=== PATIENT | male | born 1955 | race Caucasian/White ===

== ENCOUNTER 2020-11-26 14:19 | Outpatient (CLI) | payer MEDICARE, OTHER | END 2020-11-26 14:20 | disposition critical access hospital (66) | LOC: EMS 14:19 | PROVIDERS: ATTEND Surgery | DX: S49.92XA Unspecified injury of left shoulder and upper arm, initial encounter (principal); W18.31XA Fall on same level due to stepping on an object, initial encounter; Y93.89 Activity, other specified; Y92.832 Beach as the place of occurrence of the external cause | CPT/HCPCS: A0425; A0429 ==

== ENCOUNTER 2020-11-26 15:21 | Emergency (ER) | payer MEDICARE, OTHER ==
--- NOTE | 2020-11-26 15:30 | ED Physician Documentation ---
PD HPI UPPER EXT INJURY - Stated complaint Stated Complaint: L ARM INJURY - History obtained from History obtained from: Patient, EMS - History of Present Illness Location: Left (65-year-old [place] and fell directly on his left arm with moderate to severe pain there. No other injuries. Did not hit his head.) Review of Systems Constitutional: reports: Reviewed and negative Eyes: reports: Reviewed and negative Ears: reports: Reviewed and negative Nose: reports: Reviewed and negative Throat: reports: Reviewed and negative Cardiac: reports: Reviewed and negative Respiratory: reports: Reviewed and negative PD PAST MEDICAL HISTORY - Present Medications Home Medications: Ambulatory Orders Medication Instructions Recorded Confirmed HYDROcod/ACETAM 5/325 [[place] 5/325] 1 - 2 tab PO Q6H PRN #20 tablet 11/26/20 - Allergies Allergies/Adverse Reactions: Allergies Allergy/AdvReac Type Severity Reaction Status Date / Time No Known Drug Allergies Allergy Verified 11/26/20 15:28 PD ED PE NORMAL - Vitals Vital signs reviewed: Yes - General General: Alert and oriented X 3, No acute distress - HEENT HEENT: PERRL, EOMI - Neck Neck: Supple, no meningeal sign, No bony TTP - Extremities Extremities: Other (No obvious deformity of the left upper extremity but he is unable to range it at all. He is tender over the upper humerus. Normal neurovascular function in the hand and over diuretics) - Neuro Neuro: Alert and oriented X 3, Normal speech Results - Vitals Vitals: Vital Signs - 24 hr 11/26/20 15:28 Temperature 37.1 C Heart Rate 57 L Respiratory 16 Rate Blood Pressure 162/88 H O2 Saturation 100 Oxygen O2 Source Room air - Rads (name of study) L HUmerus Radiology: EMP read contemporaneously (Moderately displaced left proximal humeral shaft fracture with fracture lines also seen extending up to the humeral head.) Procedures - Splint (location) LUE Splint applied by: Physician, Tech Type of splint: Fiberglass, Long arm (co-apt) Other: Patient tolerated well, No complications, Neurovascular intact, Sling provided PD MEDICAL DECISION MAKING - ED course ED course: 65-year-old gentleman with nondominant isolated left arm injury. Neurovascularly intact but probably has some rotational deformity to the humerus. Case was discussed by phone with the on-call orthopedist, Dr. Marie who recommends a coapt/reverse sugar tong fiberglass splint for immobilization and follow-up in the office. Departure - Departure Disposition: 01 Home, Self Care Clinical Impression: Fracture of shaft of left humerus Qualifiers: Encounter type: initial encounter Fracture type: closed Fracture morphology: spiral Fracture alignment: displaced Qualified Code(s): S42.342A - Displaced spiral fracture of shaft of humerus, left arm, initial encounter for closed fracture Condition: Good Record reviewed to determine appropriate education?: Yes Instructions: ED Fx Upper Ext, ED Cast Care Fiberglass Follow-Up: Noe Marie MD [Provider Admit Priv/Credential] - Within 1 week Prescriptions: HYDROcod/ACETAM 5/325 [[place] 5/325] 1 - 2 tab PO Q6H PRN #20 tablet PRN Reason: Pain Comments: Call the orthopedic surgeon listed on this form to arrange for an appointment next week. Keep the splint on and dry. If pain is mild you can take Tylenol or ibuprofen as needed per package instructions. Do not drink or drive while taking narcotic pain medication. Note that many narcotic pain relievers also contain Tylenol/acetaminophen. Please ensure that your total dose of acetaminophen from all sources does not exceed 3 g (3000 mg) per day. You may get constipated while on this medication. Take a stool softener such as Colace twice a day while you are on it. Also add an [id number]-[id number] laxative such as senna or MiraLAX on any day that you do not have a bowel movement. If you received a narcotic pain medication or sedative while in the emergency department, do not drive for the next 24 hours.
[2020-11-26 15:35] VITALS: BP 162/88
[2020-11-26] MEDS ORDERED: HYDROcod/ACETAM 5/325 MG TABLET PO STA (15:50)
--- NOTE | 2020-11-26 16:09 | XRAY Report ---
PROCEDURE: Humerus LT INDICATIONS: arm inj TECHNIQUE: 2 views of the humerus were acquired. COMPARISON: None available FINDINGS: Bones: There is a moderately displaced, slightly comminuted fracture of the left proximal humeral sha ft, with fracture lines also seen extending up into the left humeral head. No shoulder dislocation can be seen. The visualized ribs appear intact. No suspicious lytic or blast ic lesions are seen. Soft tissues: No suspicious soft tissue calcifications. The visualized lung demonstrates a normal a ppearance. IMPRESSION: Moderately displaced left proximal humeral shaft fracture, with fracture lines also seen extending up into the humeral head. Reviewed by: Justen Medel MD on 11/26/2020 3:08 PM [facility] Approved by: Justen Medel MD on 11/26/2020 3:08 PM [facility] Station ID: [id number]
[2020-11-26] MEDS ORDERED: HYDROcod/ACET 5/325 Prepack 4 PO STA (16:44)
== END 2020-11-26 17:15 | disposition home or self-care (01) ==
LOC: ED 15:21
DX: S42.342A Displaced spiral fracture of shaft of humerus, left arm, initial encounter for closed fracture (principal); W01.0XXA Fall on same level from slipping, tripping and stumbling without subsequent striking against object, initial encounter; Y93.01 Activity, walking, marching and hiking; Y92.832 Beach as the place of occurrence of the external cause
CPT/HCPCS: 29105; 73060; 99283; A9270

== ENCOUNTER 2020-12-11 23:22 | Emergency (ER) | payer MEDICARE, OTHER ==
[2020-12-11 23:30] VITALS: BP 134/84
--- NOTE | 2020-12-11 23:36 | ED Physician Documentation ---
PD HPI UPPER EXT INJURY - Stated complaint Stated Complaint: LT ARM WOUNDS - Chief complaint Chief Complaint: Wound PD PAST MEDICAL HISTORY - Past Medical History Cardiovascular: None Respiratory: None Neuro: None Endocrine/Autoimmune: None GI: None : Other HEENT: None Psych: None Musculoskeletal: None Derm: None - Past Surgical History Past Surgical History: Yes Ortho: Other - Present Medications Home Medications: Ambulatory Orders Medication Instructions Recorded Confirmed HYDROcod/ACETAM 5/325 [[place] 5/325] 1 - 2 tab PO Q6H PRN #20 tablet 11/26/20 - Allergies Allergies/Adverse Reactions: Allergies Allergy/AdvReac Type Severity Reaction Status Date / Time No Known Drug Allergies Allergy Verified 12/11/20 23:25 - Social History Does the pt smoke?: No Smoking Status: Never smoker Does the pt drink ETOH?: Yes Does the pt have substance abuse?: No - Immunizations Immunizations are current?: Yes Results - Vitals Vitals: Vital Signs - 24 hr 12/11/20 23:25 Temperature 36.6 C Heart Rate 58 L Respiratory 16 Rate Blood Pressure 134/84 H O2 Saturation 100 Oxygen O2 Source Room air
[2020-12-11] MEDS ORDERED: BACITRACIN ZINC OINT 1 PACKET TOP STA (23:46)
[2020-12-11] MEDS ORDERED: cephALEXin 250 MG CAPSULE PO STA (23:57)
--- NOTE | 2020-12-12 09:32 | ED Physician Documentation ---
History of Present Illness - Stated complaint Stated Complaint: LT ARM WOUNDS - Chief complaint Chief Complaint: Wound - History obtained from History obtained from: Patient - History of Present Illness Timing: Today Pain level now: 3 - Additonal information Additional information: T+R from this ED 11/26 for left humeral fracture. He was seen twice in outpatient setting by orthopedic surgeon, being managed nonoperatively with Caban splint, which was adjusted (tightened) 3 days ago. Patient says earlier today he had increasing pain and sensation of swelling and thus removed the splint and noted a thick discharge from the anterior area of the injury. He says he had been keeping the splint in place until today. Denies fever. Review of Systems Constitutional: denies: Fever, Chills, Sweats Skin: reports: Rash Musculoskeletal: reports: Extremity pain, Extremity swelling PD PAST MEDICAL HISTORY - Past Medical History Past Medical History: Yes Cardiovascular: None Respiratory: None Neuro: None Endocrine/Autoimmune: None GI: None : None HEENT: None Psych: None Musculoskeletal: None Derm: None Other Past Medical History: Hematochromatosis - Past Surgical History Past Surgical History: Yes Ortho: Other - Present Medications Home Medications: Ambulatory Orders Medication Instructions Recorded Confirmed HYDROcod/ACETAM 5/325 [[place] 5/325] 1 - 2 tab PO Q6H PRN #20 tablet 11/26/20 cephALEXin [Keflex] 500 mg PO Q6H #28 capsule 12/12/20 - Allergies Allergies/Adverse Reactions: Allergies Allergy/AdvReac Type Severity Reaction Status Date / Time No Known Drug Allergies Allergy Verified 12/11/20 23:25 - Social History Does the pt smoke?: No Smoking Status: Never smoker Does the pt drink ETOH?: Yes Does the pt have substance abuse?: No - Immunizations Immunizations are current?: Yes - POLST Patient has POLST: No PD ED PE NORMAL - Vitals Vital signs reviewed: Yes - General General: Alert and oriented X 3, No acute distress, Well developed/nourished - Neuro Neuro: No motor deficit, No sensory deficit PD ED PE EXPANDED - Extremities Extremities: Swelling, Bruising, Other (diagrammed areas 1 and 2 have abraded skin with punctate areas of scant fresh blood; both areas are erythematous but not hot to touch and there is no fluctuance nor purulent discharge seen) LADONNA UE/Hands Visual: 1 - bruising, abrasion 2 - bruising, abrasion Results - Vitals Vitals: Vital Signs - 24 hr 12/11/20 12/12/20 23:25 00:28 Temperature 36.6 C 36.6 C Heart Rate 58 L 62 Respiratory 16 14 Rate Blood Pressure 134/84 H O2 Saturation 100 100 Oxygen O2 Source Room air Procedures - Splint (location) Upper extremity left Splint applied by: Tech Type of splint: Fiberglass, Sugar tong Other: Patient tolerated well, No complications, Neurovascular intact, Good alignment, Other PD MEDICAL DECISION MAKING - ED course Complexity details: reviewed old records, considered differential, d/w patient ED course: the diagrammed areas (1 and 2) of LUE have appearance s/o irritation and s uperficial skin breakdown, correlating with areas of contact with the splint. Does not appear infected although patient reports noting thick discharge when he removed the splint earlier tonight. Given dose of keflex with rx for same to cover possible early cellulitis. A sugar tong splint was applied which patient says was comfortable; I instructed him to contact his orthopedic surgeon to arrange for next available appointment for reevaluation . Departure - Departure Disposition: 01 Home, Self Care Clinical Impression: Left humeral fracture Condition: Good Instructions: ED Cast Care Fiberglass, ED Fx Upper Ext Follow-Up: Noe Marie MD [Provider Admit Priv/Credential] - Within 3 Days Prescriptions: cephALEXin [Keflex] 500 mg PO Q6H #28 capsule Discharge Date/Time: 12/12/20 00:28
== END 2020-12-12 00:28 | disposition home or self-care (01) ==
LOC: ED 23:22
DX: S42.302A Unspecified fracture of shaft of humerus, left arm, initial encounter for closed fracture (principal); X58.XXXA Exposure to other specified factors, initial encounter; L98.491 Non-pressure chronic ulcer of skin of other sites limited to breakdown of skin
CPT/HCPCS: 29105; 99282; 99283; A9270

== ENCOUNTER 2021-01-09 07:37 | Outpatient (CLI) | payer MEDICARE, OTHER ==
--- NOTE | 2021-01-09 11:40 | XRAY Report ---
PROCEDURE: Humerus LT INDICATIONS: ASEPTIC NECROSIS OF L HUMERUS TECHNIQUE: 4 views of the humerus were acquired. COMPARISON: Left humerus radiographs 12/14/2020 FINDINGS: Bones: A mildly displaced fracture of the proximal humeral diaphysis is again seen with approximately 7 mm lateral and posterior displacement of the distal fracture fragment. A lucent fracture line is a gain seen extending to the posterior aspect of the greater tuberosity. Callus formation and periostea l reaction is seen adjacent to the fracture, compatible with interval healing changes. Soft tissues: No suspicious soft tissue calcifications. IMPRESSION: Mild progressive healing changes involving the previously seen mildly displaced fracture of the proxi mal humeral diaphysis. Reviewed by: Gagan Enrique MD on 01/09/2021 11:38 AM PST Approved by: Gagan Enrique MD on 01/09/2021 11:38 AM [facility] Station ID: [id number]
== END 2021-01-09 23:59 | disposition home or self-care (01) ==
LOC: DI.N 07:37
PROVIDERS: ATTEND Orthopaedic Surgery
DX: M87.022 Idiopathic aseptic necrosis of left humerus (principal); S42.202A Unspecified fracture of upper end of left humerus, initial encounter for closed fracture

== ENCOUNTER 2023-08-29 06:59 | Day surgery (SDC) | payer MEDICARE, OTHER ==
[~2023-08-29 06:59] MED LIST: CYCLOPENTOLATE 1% OPHTH DROPS 2 ML ONE; KETOROLAC 0.45% OPHTH DROPS ONE; PHENYLEPHRINE 2.5% OPHTH 2 ML DROPS ONE; PROPARACAINE 0.5% OPHTH DROPS 15 ML ONE
[2023-08-29] MEDS ORDERED: LACTATED RINGERS 1,000 ML IV ONE (07:07)
--- NOTE | 2023-08-29 07:21 | ANESTHESIA ---
Pre-Anesthesia VS, & Labs - Diagnosis L senile combined cataract - Procedure L extraction cataract w/IOL Vital Signs: Temp Pulse Resp BP Pulse Ox O2 Flow Rate 36.1 C L 64 16 127/87 H 95 08/29/23 07:11 08/29/23 07:11 08/29/23 07:11 08/29/23 07:11 08/29/23 07:11 Height: 6 ft 4 in Weight (kg): 95 kg Body Mass Index: 25.4 BMI Classification: Overweight - NPO >8 hours - Lab Results Lab results reviewed: Yes Home Medications and Allergies Home Medications: Ambulatory Orders Finasteride [Proscar] 5 mg PO DAILY 08/29/23 Tamsulosin HCl [Flomax] 0.4 mg PO DAILY 08/29/23 Allergies/Adverse Reactions: Allergies Allergy/AdvReac Type Severity Reaction Status Date / Time No Known Drug Allergies Allergy Verified 12/11/20 23:25 Anes History & Medical History - Anesthetic History Anesthesia Complications: reports: No previous complications Family history of Anesthesia Complications: Denies Family history of Malignant Hyperthermia: Denies - Medical History Cardiovascular: reports: None Pulmonary: reports: None Gastrointestinal: reports: None Urinary: reports: None Neuro: reports: None Musculoskeletal: reports: None Endocrine/Autoimmune: reports: None Blood Disorders: reports: None Skin: reports: None Smoking Status: Never smoker Psychosocial: reports: Alcohol (social) History of Cancer?: No - Surgical History Orthopedic: reports: Other Exam General: Alert, Oriented x3, Cooperative Dental: WNL Mouth Openin Fingerbreadth Neck Mobility: Normal Mallampati classification: I Thyromental Distance: 4-6 cm Respiratory: Lungs clear, Normal breath sounds, No respiratory distress Cardiovascular: Regular rate Neurological: Normal speech Mental/Cognitive Status: Alert/Oriented X3, Normal for patient Cognitive Status: Within normal limits Plan Anesthesia Type: MAC Consent for Procedure(s) Verified and Reviewed: Yes Code Status: Attempt Resuscitation ASA classification: 1-Healthy patient Is this case an emergency?: No
[2023-08-29] MEDS ORDERED: TRIAMCIN/MOXIFLOX OPHTHALMIC 0.6 ML VIAL IO ONE ×2 (07:29→08:16)
[2023-08-29] MEDS ORDERED: BSS/LIDOCAINE/EPINEPHRINE 1 ML VIAL ONE (07:29)
[2023-08-29] MEDS ORDERED: EPINEPHrine 1 MG/ML AMP ONE (07:29)
[2023-08-29] MEDS ORDERED: BRIMONIDINE 0.2% OPHTH DROPS 5 ML ONE (07:29)
[2023-08-29] MEDS ORDERED: TIMOLOL 0.5% OPHTH DROPS ONE (07:29)
[2023-08-29] MEDS ORDERED: BRIMONIDINE 0.2% OPHTH DROPS 5 ML OPTH ONE (08:15)
[2023-08-29] MEDS ORDERED: MIDAZOLAM 2 MG/2 ML VIAL ONE (08:16)
[2023-08-29] MEDS ORDERED: BSS/LIDOCAINE/EPINEPHRINE 1 ML SYRINGE IO ONE (08:16)
[2023-08-29] MEDS ORDERED: PROPARACAINE 0.5% OPHTH DROPS 15 ML EACHEYE ONE (08:16)
[2023-08-29] MEDS ORDERED: TIMOLOL 0.5% OPHTH DROPS OPTH ONE (08:16)
[2023-08-29] MEDS ORDERED: EPINEPHrine 1 MG/ML AMP IR ONE (08:16)
[2023-08-29] MEDS ORDERED: VANCOMYCIN OPHTH (TOPICAL) 10 MG/ML SYRINGE TOP ONE (08:17)
[2023-08-29] MEDS ORDERED: LACTATED RINGERS 550 ML IV ONE (08:47)
--- NOTE | 2023-08-29 08:51 | ANESTHESIA POST OP EVALUATION ---
Anesthesia Post Eval - Post Anesthesia Eval Vitals: Last Vital Signs Temp 36.3 C L 08/29/23 08:47 Pulse 51 L 08/29/23 08:47 Resp 12 08/29/23 08:47 BP 104/66 08/29/23 08:47 Pulse Ox 99 08/29/23 08:47 O2 Flow Rate CV Function Including HR & BP: Stable Pain Control: Satisfactory Nausea & Vomiting: Negative Mental Status: Baseline Respiratory Status: Airway Patent Hydration Status: Satisfactory Anesthesia Complications: None
--- NOTE | 2023-08-29 08:59 | OPERATIVE REPORT ---
Operative Report - Other Other Information/Narrative: Date of Surgery: 08/29/23 Preop Dx: Visually significant cataract left eye. This was the first cataract surgery. Postop Dx: Same Procedure: Phacoemulsification with posterior chamber intraocular lens implant left eye Surgeon: Dr. Oz Quarles Anesthesia: Monitored anesthesia care Complications: None Operative Indications: This is a 67-year-old M with progressive vision loss in the left eye due to 3+ nuclear sclerotic cataract, anterior central opacities, and central irregularities. Best corrected visual acuity was 20/25 with glare to 20/150 vision in the left eye. Indications for surgery were: - Difficulty seeing words on a computer screen - Difficulty reading - Difficulty driving in low light or at night - Difficulty driving at night because of headlights from other vehicles The patient was consented at length concerning the risks and benefits of cataract surgery after which the patient expressed a desire to proceed with surgery. Operative Procedure: The patient was taken into OR#3 and placed under monitored anesthesia care. A surgical time-out was conducted confirming correct patient, correct procedure, and correct surgical site. The patient was given topical anesthesia and then prepped and draped in the usual sterile fashion. The eye was entered at the 6 and 3 oclock positions. Intracameral Shugarcaine was injected into the anterior chamber followed by a dispersive viscoelastic. A continuous-tear curvilinear capsulorhexis was performed. The nucleus was hydrodissected and phacoemulsified. The cortex was evacuated using automated infusion and aspiration. A cohesive viscoelastic was injected into the capsular bag and a 21.5 diopter intraocular lens was inserted into the bag. Infusion and aspiration were used to evacuate the viscoelastic materials from the eye. The wounds were hydrated and the eye inflated to physiologic pressure using balanced salt solution. However, during hydration the iris prolapsed through the phaco wound and had to be reposited using a cyclodialysis spatula. Two 10.0 Nylon sutures were then placed across the phaco wound and the eye was re-inflated with balanced salt solution. Approximately 0.25ml of a mixture of triamcinolone and moxifloxacin was injected trans-sclerally into the vitreous in the inferotemporal quadrant using a 30 gauge cannula. An additional 0.25ml of a mixture of triamcinolone and moxifloxacin was injected subconjunctivally in the superior quadrant for infection and inflammation prophylaxis. Wound integrity was checked with Weck-Elizabeth sponges. The patient was taken from the operating room in good condition and given post-op instructions.
[2023-08-29 09:02] VITALS: O2SAT 98
[2023-08-29 09:12] VITALS: BP 109/74
--- NOTE | 2023-08-29 09:47 | OPERATIVE REPORT ---
Operative Report - Other Other Information/Narrative: Date of Surgery: 08/29/23 Preop Dx: Visually significant cataract left eye. This was the first cataract surgery. Postop Dx: Same Procedure: Phacoemulsification with posterior chamber toric intraocular lens implant left eye Surgeon: Dr. Oz Quarles Anesthesia: Monitored anesthesia care Complications: IOL trailing haptic avulsion during implantation with subsequent explantation and replacement. Operative Indications: This is a 67-year-old M with progressive vision loss in the left eye due to 3-4+ nuclear sclerotic cataract. Best corrected visual acuity was 20/30 with glare to 20/200 vision in the left eye. Indications for surgery were: - Overall decrease in vision - Difficulty seeing words on a computer screen - Difficulty reading - Difficulty seeing street signs - Difficulty driving in low light or at night - Difficulty driving at night because of headlights from other vehicles - Difficulty with glare or bright lights in any situation The patient was consented at length concerning the risks and benefits of cataract surgery after which the patient expressed a desire to proceed with surgery. Operative Procedure: The patients cornea was marked in the pre-surgical area to indicate the axis for the toric intraocular lens. The patient was taken into OR#3 and placed under monitored anesthesia care. A surgical time-out was conducted confirming correct patient, correct procedure, and correct surgical site. The patient was given topical anesthesia and then prepped and draped in the usual sterile fashion. The eye was entered at the 6 and 3 oclock positions. Intracameral Shugarcaine was injected into the anterior chamber followed by a dispersive viscoelastic. A continuous-tear curvilinear capsulorhexis was performed. The nucleus was hydrodissected and phacoemulsified. The cortex was evacuated using automated infusion and aspiration. A cohesive viscoelastic was injected into the capsular bag and a 21.0 diopter toric intraocular lens was inserted through the phaco wound but the trailing haptic was jammed between the injector barrel and the injector plunger. Neither advancing the plunger or retracting the plunger seemed to dislodge the haptic. During retraction the IOL haptic parted from the IOL leaving the IOL in the anterior chamber with only one haptic. The IOL in the anterior chamber was cut into three pieces using microsurgical graspers and microsurgical scissors and the pieces removed. A 21.0 diopter toric intraocular lens was inserted into the bag and rotated to axis 010. Infusion and aspiration were used to evacuate the viscoelastic materials from the eye and the IOL was verified to remain on axis. The wounds were hydrated and the eye inflated to physiologic pressure using balanced salt solution. Approximately 0.25ml of a mixture of triamcinolone and moxifloxacin was injected trans-sclerally into the vitreous in the inferotempor al quadrant using a 30 gauge cannula. An additional 0.25ml of a mixture of triamcinolone and moxifloxacin was injected subconjunctivally in the superior quadrant for infection and inflammation prophylaxis. Wound integrity was checked with Weck-Elizabeth sponges and the IOL axis was once again verified to be on the correct axis. The patient was taken from the operating room in good condition, he and his informed of the complication, and given post-op instructions.
== END 2023-08-29 07:00 | disposition home or self-care (01) ==
LOC: SDS 06:59
PROVIDERS: ATTEND Ophthalmology
DX: H25.812 Combined forms of age-related cataract, left eye (principal)
CPT/HCPCS: 66984; A9270; J3490; J7120

== ENCOUNTER 2023-10-31 08:18 | Day surgery (SDC) | payer MEDICARE, OTHER ==
[~2023-10-31 08:18] MED LIST changes: -CYCLOPENTOLATE 1% OPHTH DROPS 2 ML ONE
[2023-10-31] MEDS ORDERED: CYCLOPENTOLATE 1% OPHTH DROPS 2 ML RIGHTEYE ONE (08:38)
[2023-10-31] MEDS ORDERED: MIDAZOLAM 2 MG/2 ML VIAL ONE (09:29)
[2023-10-31] MEDS ORDERED: TIMOLOL 0.5% OPHTH DROPS ONE (09:50)
[2023-10-31] MEDS ORDERED: EPINEPHrine 1 MG/ML AMP ONE (09:50)
[2023-10-31] MEDS ORDERED: TRIAMCIN/MOXIFLOX OPHTHALMIC 0.6 ML VIAL IO ONE ×2 (09:50→10:16)
[2023-10-31] MEDS ORDERED: BRIMONIDINE 0.2% OPHTH DROPS 5 ML ONE (09:50)
[2023-10-31] MEDS ORDERED: BSS/LIDOCAINE/EPINEPHRINE 1 ML VIAL ONE (09:51)
--- NOTE | 2023-10-31 09:59 | ANESTHESIA ---
Pre-Anesthesia VS, & Labs - Diagnosis Right senile combined cataract - Procedure right eye cataract extraction with IOL implant Vital Signs: Temp Pulse Resp BP Pulse Ox O2 Flow Rate 36.5 C 51 L 16 104/68 100 10/31/23 08:30 10/31/23 08:30 10/31/23 08:30 10/31/23 08:30 10/31/23 08:30 Height: 6 ft 4 in Weight (kg): 96 kg Body Mass Index: 25.7 BMI Classification: Overweight - NPO >8 hours Home Medications and Allergies Finasteride [Proscar] 5 mg PO DAILY 08/29/23 Tamsulosin HCl [Flomax] 0.4 mg PO DAILY 08/29/23 Allergies/Adverse Reactions: Allergies Allergy/AdvReac Type Severity Reaction Status Date / Time No Known Drug Allergies Allergy Verified 10/30/23 12:12 Anes History & Medical History - Anesthetic History Anesthesia Complications: reports: No previous complications - Medical History Cardiovascular: reports: None Pulmonary: reports: None Gastrointestinal: reports: None Urinary: reports: Benign prostate hypertrophy Neuro: reports: None Musculoskeletal: reports: None Endocrine/Autoimmune: reports: None Blood Disorders: reports: None Skin: reports: None Smoking Status: Never smoker Psychosocial: reports: No issues indicated History of Cancer?: No - Surgical History Orthopedic: reports: Other Exam General: Alert, Oriented x3, Cooperative, No acute distress Dental: WNL Mouth Openin Fingerbreadth Neck Mobility: Normal Mallampati classification: II Thyromental Distance: 4-6 cm Mental/Cognitive Status: Alert/Oriented X3, Normal for patient Plan Anesthesia Type: MAC Consent for Procedure(s) Verified and Reviewed: Yes Code Status: Attempt Resuscitation ASA classification: 2-Mild systemic disease Is this case an emergency?: No
[2023-10-31] MEDS ORDERED: TIMOLOL 0.5% OPHTH DROPS OPTH ONE (10:15)
[2023-10-31] MEDS ORDERED: BRIMONIDINE 0.2% OPHTH DROPS 5 ML OPTH ONE (10:15)
[2023-10-31] MEDS ORDERED: BSS/LIDOCAINE/EPINEPHRINE 1 ML SYRINGE IO ONE (10:15)
[2023-10-31] MEDS ORDERED: EPINEPHrine 1 MG/ML AMP IR ONE (10:15)
[2023-10-31] MEDS ORDERED: PROPARACAINE 0.5% OPHTH DROPS 15 ML RIGHTEYE ONE (10:16)
[2023-10-31] MEDS ORDERED: VANCOMYCIN OPHTH (TOPICAL) 10 MG/ML SYRINGE TOP ONE (10:16)
[2023-10-31] MEDS ORDERED: LACTATED RINGERS 1,000 ML IV ONE (10:28)
--- NOTE | 2023-10-31 10:38 | OPERATIVE REPORT ---
Operative Report - Other Other Information/Narrative: Date of Surgery: 10/31/23 Preop Dx: Visually significant cataract right eye. Cataract surgery was performed in the left eye on . Postop Dx: Same Procedure: Phacoemulsification with posterior chamber intraocular lens implant right eye Surgeon: Dr. Oz Quarles Anesthesia: Monitored anesthesia care Complications: None Operative Indications: This is a 67-year-old M with progressive vision loss in the right eye due to 2-3+ nuclear sclerotic and trace cortical cataract. Best corrected visual acuity was 20/20 with glare to 20/150 vision in the right eye. Indications for surgery were: - Overall decrease in vision - Difficulty seeing words on a computer screen - Difficulty reading - Difficulty seeing words, closed captions, or game scores on TV - Difficulty seeing street signs - Difficulty driving in low light or at night - Difficulty driving at night because of headlights from other vehicles - Difficulty with glare or bright lights in any situation The patient was consented at length concerning the risks and benefits of cataract surgery after which the patient expressed a desire to proceed with surgery. Operative Procedure: The patient was taken into OR#3 and placed under monitored anesthesia care. A surgical time-out was conducted confirming correct patient, correct procedure, and correct surgical site. The patient was given topical anesthesia and then prepped and draped in the usual sterile fashion. The eye was entered at the 6 and 3 oclock positions. Intracameral Shugarcaine was injected into the anterior chamber followed by a dispersive viscoelastic. The iris prolapsed through the phaco wound and had to be reposited using a cy clodialysis spatula. A continuous-tear curvilinear capsulorhexis was performed. The nucleus was hydrodissected and phacoemulsified. The cortex was evacuated using automated infusion and aspiration. A cohesive viscoelastic was injected into the capsular bag and a 23.5 diopter intraocular lens was inserted into the bag. Infusion and aspiration were used to evacuate the viscoelastic materials from the eye. The wounds were hydrated and the eye inflated to physiologic pressure using balanced salt solution. Approximately 0.25ml of a mixture of triamcinolone and moxifloxacin was injected trans-sclerally into the vitreous in the inferotemporal quadrant using a 30 gauge cannula. An additional 0.25ml of a mixture of triamcinolone and moxifloxacin was injected subconjunctivally in the superior quadrant for infection and inflammation prophylaxis. Wound integrity was checked with Weck-Elizabeth sponges. The patient was taken from the operating room in good condition and given post-op instructions.
--- NOTE | 2023-10-31 10:54 | ANESTHESIA POST OP EVALUATION ---
Anesthesia Post Eval - Post Anesthesia Eval Vitals: Last Vital Signs Temp 36.3 C L 10/31/23 10:43 Pulse 58 L 10/31/23 10:43 Resp 14 10/31/23 10:43 BP 110/71 10/31/23 10:43 Pulse Ox 100 10/31/23 10:43 O2 Flow Rate CV Function Including HR & BP: Stable Pain Control: Satisfactory Nausea & Vomiting: Negative Mental Status: Baseline Respiratory Status: Airway Patent Hydration Status: Satisfactory Anesthesia Complications: None
[2023-10-31 10:56] VITALS: BP 110/71; O2SAT 100
== END 2023-10-31 08:19 | disposition home or self-care (01) ==
LOC: SDS 08:18
PROVIDERS: ATTEND Ophthalmology
DX: H25.811 Combined forms of age-related cataract, right eye (principal)
CPT/HCPCS: 66984; A9270; J3490; J7120